=== PATIENT | male | born 1975 | race Caucasian/White ===

== ENCOUNTER 2016-12-12 00:49 | Emergency (ER) | payer SELFPAY ==
[2016-12-12] MEDS ORDERED: THIAMINE HCL 100 MG/ML 2ML VIAL ONE ×2 (01:13→01:14)
[2016-12-12] MEDS ORDERED: FOLIC ACID 5 MG/1 ML ONE (01:13)
[2016-12-12] MEDS ORDERED: 0.9 % SODIUM CHLORIDE 1,000 ML IV ONE ×2 (01:13→01:14)
[2016-12-12] MEDS ORDERED: MVI, ADULT NO.1 WITH VIT K 10 ML VIAL IV ONE (01:13)
[2016-12-12 01:20] LABS: EOSINOPHILS % 1.7 % (0.0-6.8); MEAN CORPUSCULAR HEMOGLOBIN 29.2 pg (28.0-34.0); MEAN CORPUSCULAR VOLUME 88.3 fl (80.0-100.0); MONOCYTES % 6.1 % (0.0-11.0); NEUTROPHILS # 4.6 # k/uL (1.4-7.7)
[2016-12-12 01:22] LABS: BASOPHILS % 1.2 (0.0-1.5)
[2016-12-12] MEDS: THIAMINE HCL 100 MG, MVI, ADULT NO.1 WITH VIT K 10 ML, FOLIC ACID 5 MG in 0.9 % SODIUM ... IV STA ×4 (01:23)
[2016-12-12 01:39] LABS: eGFR (African) > 60; eGFR (Non-African) > 60
[2016-12-12] MEDS: 0.9 % SODIUM CHLORIDE 1,000 ML IV ONE ×2 (03:00→07:20)
[2016-12-12 08:33] LABS: APPEARANCE,URINE CLEAR (CLEAR); COLOR,URINE YELLOW (YELLOW); OCCULT BLOOD,URINE TRACE-LYSED (NEGATIVE); UROBILINOGEN URINE 0.2 Eu (0.2-1.0)
[2016-12-12 09:49] VITALS: BP 127/80
--- NOTE | 2016-12-12 11:45 | ED Physician Documentation ---
General Adult - HISTORIAN Historian: patient, other (Dr Kirkpatrick) - HPI Stated Complaint: depression, alcohol abuse Chief Complaint: General Adult Further Comments: yes (0700 Assumed care of 41 year old male patient who presented to the ER intoxicated with suicidal ideation. [facility] contacted , will evaluate after ETOH level <150.) - ROS CONST: no problems (Per Dr Kirkpatrick's records) - PAST HX Past History: none (Per Dr Kirkpatrick's documentation) Allergies/Adverse Reactions: Allergies Allergy/AdvReac Type Severity Reaction Status Date / Time No Known Allergies Allergy Verified 12/12/16 00:53 Home Medications: Ambulatory Orders Medication Instructions Recorded NK [NK] 12/12/16 - SOCIAL HX Smoking History: cigarettes Alcohol Use: heavy - FAMILY HX Family History: No - VITAL SIGNS Vital Signs: Vital Signs Temp Pulse Resp BP Pulse Ox 99.6 F 81 20 127/80 97 12/12/16 09:49 12/12/16 09:49 12/12/16 09:49 12/12/16 09:49 12/12/16 09:49 - REVIEWED ASSESSMENTS Nursing Assessment Reviewed: Yes Vitals Reviewed: Yes Progress - Progress Progress: 0700 Assumed care of patient, ETOH pending. 0730 Reassessed - patient denies suicidal thoughts or ideation. 0800 ETOH 155, called to Dr Tinoco. Will not take patient until ETOH <150. Records to the [place]. [address] Tinoco. Re-assessed, patient denies any suicidal thoughts at present, states he does not have a plan to harm himself. 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 0900 Call from Ayala, patient's caridad. Reports patient lives with her at times and [facility] [place], reports patient has a job. Patient continues to deny suicidal thoughts or plan. Will discharge home with caridad. ED Results Lab/Radiology - Lab Results Lab Results: Lab Results 12/12/16 12/12/16 12/12/16 06:40 06:09 04:15 WBC RBC Hgb Hct MCV MCH MCHC RDW Plt Count Neut % (Auto) Lymph % (Auto) Bertie % (Auto) Eos % (Auto) Baso % (Auto) Neut # Lymph # Bertie # Eos # Baso # Reactive Lymphs % Reactive Lymphs # Sodium Potassium Chloride Carbon Dioxide BUN Creatinine Estimated Creat Clear Est GFR ( Amer) Est GFR (Non-Af Amer) Glucose Calcium Total Bilirubin AST ALT Alkaline Phosphatase Total Protein Albumin Urine Color Yellow (YELLOW) Urine Appearance Clear (CLEAR) Urine pH 5.0 (5.0 - 8.0) Ur Specific Mica 1.010 (1.010-1.030) Urine Protein Negative mg/dL mg/dL (NEGATIVE) Urine Ketones Negative mg/dL mg/dL (NEGATIVE) Urine Occult Blood Trace-lysed H (NEGATIVE) Urine Nitrite Negative (NEGATIVE) Urine Bilirubin Negative (NEGATIVE) Urine Urobilinogen 0.2 Eu Eu (0.2-1.0) Ur Leukocyte Esterase Negative (NEGATIVE) Urine Glucose Negative mg/dL mg/dL (NEGATIVE) Ethyl Alcohol 155.8 MG/DL H MG/DL 207.5 MG/DL H MG/DL (<10.0) (<10.0) 12/12/16 12/12/16 12/12/16 01:15 01:15 01:15 WBC 11.20 K/ul K/ul (4.00-12.00) RBC 5.42 M/ul H M/ul (3.90-5.20) Hgb 15.8 g/dL g/dL (12.0-18.0) Hct 47.9 % % (37.0-53.0) MCV 88.3 fl fl (80.0-100.0) MCH 29.2 pg pg (28.0-34.0) MCHC 33.0 g/dL g/dL (30.0-36.0) RDW 14.4 % H % (11.3-14.3) Plt Count 230 K/mm3 K/mm3 (130-400) Neut % (Auto) 50.5 % % (39.0-79.0) Lymph % (Auto) 38.9 % % (16.0-50.0) Bertie % (Auto) 6.1 % % (0.0-11.0) Eos % (Auto) 1.7 % % (0.0-6.8) Baso % (Auto) 1.2 (0.0-1.5) Neut # 4.6 # k/uL # k/uL (1.4-7.7) Lymph # 3.6 # k/uL # k/uL (0.6-4.0) Bertie # 0.6 # k/uL # k/uL (0.0-0.9) Eos # 0.2 # k/uL # k/uL (0.0-0.6) Baso # 0.1 # k/uL # k/uL (0.0-0.5) Reactive Lymphs % 2.0 % % (0.0-5.0) Reactive Lymphs # 0.2 # k/uL # k/uL (0.0-0.8) Sodium 144 mmol/L mmol/L (136-145) Potassium 3.4 mmol/L L mmol/L (3.5-5.0) Chloride 107 mmol/L mmol/L (98-110) Carbon Dioxide 31 mmol/L mmol/L (20-32) BUN 12 mg/dL mg/dL (10-26) Creatinine 0.8 mg/dL mg/dL (0.4-1.5) Estimated Creat Clear 118 Est GFR ( Amer) > 60 (60 - ) Est GFR (Non-Af Amer) > 60 (60 - ) Glucose 88 mg/dL mg/dL (70-99) Calcium 10.1 mg/dL mg/dL (8.5-10.5) Total Bilirubin 0.3 mg/dL mg/dL (0.2-1.2) AST 43 U/L H U/L (0-41) ALT 34 U/L U/L (0-45) Alkaline Phosphatase 74 U/L U/L (46-116) Total Protein 8.2 g/dL g/dL (6.0-8.5) Albumin 5.0 g/dL g/dL (3.0-5.5) Urine Color Urine Appearance Urine pH Ur Specific Mica Urine Protein Urine Ketones Urine Occult Blood Urine Nitrite Urine Bilirubin Urine Urobilinogen Ur Leukocyte Esterase Urine Glucose Ethyl Alcohol 272.8 MG/DL H MG/DL (<10.0) - Orders Orders: ED Orders Category Date Time Status CBC/PLATELET/DIFF Routine Lab 12/12/16 01:15 Completed CMP Routine Lab 12/12/16 01:15 Completed ETHANOL MEDICAL USE ONLY Stat Lab 12/12/16 01:15 Completed ETHANOL MEDICAL USE ONLY Stat Lab 12/12/16 04:15 Completed ETHANOL MEDICAL USE ONLY Stat Lab 12/12/16 06:40 Completed UA MACRO DIP ONLY Routine Lab 12/12/16 06:09 Completed 0.9 % Sodium Chloride [Normal Saline] 1,000 ml Med 12/12/16 01:13 Discontinued IV .STK-MED 0.9 % Sodium Chloride [Normal Saline] 1,000 ml Med 12/12/16 01:14 Discontinued IV .STK-MED 0.9 % Sodium Chloride [Normal Saline] 1,000 ml Med 12/12/16 07:14 Discontinued IV NOW 0.9 % Sodium Chloride [Normal Saline] 1,000 ml Med 12/12/16 02:41 Discontinued IV Q1H Folic Acid [Folvite] Med 12/12/16 01:13 Discontinued 5 mg .ROUTE .STK-MED ONE Mvi, Adult No.1 with Vit K [M.v.i. Adult] Med 12/12/16 01:13 Discontinued 10 ml IV .STK-MED ONE Thiamine HCl Med 12/12/16 01:13 Discontinued 200 mg .ROUTE .STK-MED ONE Thiamine HCl Med 12/12/16 01:14 Discontinued 200 mg .ROUTE .STK-MED ONE Thiamine HCl 100 mg Med 12/12/16 00:57 Discontinued Mvi, Adult No.1 with Vit K [M.v.i. Adult] 10 ml Folic Acid [Folvite] 5 mg 0.9 % Sodium Chloride [Normal Saline] 1,000 ml IV STAT General Adult Physical Exam - PHYSICAL EXAM GENERAL APPEARANCE: Sleeping in room EENT: eye inspection normal, ALEM SKIN: normal color, warm/dry, NR, INT, PAL, DR NEURO: oriented X3, CN's nml as tested, motor nml, sensation nml, mood/affect nml, other (denies suicidal thoughts, ideation or plan) Discharge Clincal Impression: ETOH intoxication, Depression, Homelessness Referrals: Primary Doctor,No [Primary Care Provider] - 2 Days Home Medications: Ambulatory Orders NK [NK] 12/12/16 Condition: Stable Disposition: 01 HOME, SELF-CARE Decision to Admit: NO Decision Time: 09:40
== END 2016-12-12 09:53 | disposition home or self-care (01) ==
LOC: ED 00:49
DX: F10.129 Alcohol abuse with intoxication, unspecified (principal); Y90.6 Blood alcohol level of 120-199 mg/100 ml; F32.9 Major depressive disorder, single episode, unspecified; Z59.0 Homelessness
CPT/HCPCS: 80053; 80320; 81002; 85025; 93005; J3411; J3490; J7030; 96361; 96365; 99283; G0480; S1016

== ENCOUNTER 2017-09-27 01:25 | Emergency (ER) | payer OTHER ==
--- NOTE | 2017-09-27 02:12 | ED Physician Documentation ---
General Adult - HISTORIAN Historian: patient - HPI Stated Complaint: Blood in stool Chief Complaint: GI Bleed Additional Information: bright recd rectal bleeding first noted about 2200 then 2400hrs tonite est 2-3 cc (thimble full). no pain or none previous-no constipation. denies abd pain or nausea. nurse reports pt homeless but [facility] - [place] vet. Onset: other (tonite) Timing: denies: pain intermittent, pain lasting Severity: mild - ROS CONST: no problems. denies: fever, sweating, recent illness, weakness, weight loss EYES/ENT: denies: problems with vision, sore throat CVS/RESP: none GI/: none MS/SKIN/LYMPH: none NEURO/PSYCH: denies: headache, fainting, dizziness, tingling - PAST HX Past History: other (ethanol plus drug abuse-clean for 2 weeks. std after father brain cancer) Other History: none Surgeries/Procedures: none Allergies/Adverse Reactions: Allergies Allergy/AdvReac Type Severity Reaction Status Date / Time latex Allergy Intermediate Rash Verified 09/27/17 01:45 Home Medications: Ambulatory Orders Medication Instructions Recorded Citalopram Hydrobromide [Celexa] 40 mg PO QD 09/27/17 - SOCIAL HX Smoking History: less than 1 pack/day (plus E/cigarettes) Alcohol Use: none Drug Use: none - FAMILY HX Family History: Yes (f-d 57-ca brain [id number] and cva htn) - VITAL SIGNS Vital Signs: Vital Signs Temp Pulse Resp BP Pulse Ox 97.8 F 78 18 151/69 98 09/27/17 01:30 09/27/17 01:30 09/27/17 01:30 09/27/17 01:30 09/27/17 01:30 - REVIEWED ASSESSMENTS Nursing Assessment Reviewed: Yes Vitals Reviewed: Yes General Adult Physical Exam - PHYSICAL EXAM GENERAL APPEARANCE: no distress EENT: eye inspection normal NECK: normal inspection, thyroid normal, supple. No: carotid bruit RESPIRATORY: no resp distress, breath sounds normal CVS: reg rate & rhythm, heart sounds normal ABDOMEN: soft, non-tender RECTAL: normal exam, normal rectal tone, other (no feces or jmasses or hemorrhoids-very slight normal brown soft stool-no blood) BACK: normal inspection SKIN: warm/dry, normal color. No: cyanosis, diaphoresis, jaundice, pallor EXTREMITIES: non-tender, normal range of motion, no evidence of injury NEURO: oriented X3, motor nml, sensation nml, mood/affect nml, cognition normal. No: depressed mood/affect ( ) Discharge Clincal Impression: very small amt br red rectal bleed , estimate total thimble full Referrals: Primary Doctor,No [Primary Care Provider] - 2 Days Comments: [facility] or persist-no masses tenderness or hemorrhoids palpated. pt to rted stat large amt bleeding Condition: Good Disposition: HOME, SELF-CARE Decision to Admit: NO Decision Time: 02:23
[2017-09-27 02:30] VITALS: BP 137/76
== END 2017-09-27 02:26 | disposition home or self-care (01) ==
LOC: ED 01:25
DX: K62.89 Other specified diseases of anus and rectum (principal)
CPT/HCPCS: 99282